=== PATIENT | female | born 1945 | race Caucasian/White ===

== ENCOUNTER 2017-07-06 10:58 | Emergency (ER) | payer OTHER, MEDICARE ==
[~2017-07-06] VITALS: Ht 167.6 cm; Wt 68.0 kg
[2017-07-06 11:50] VITALS: BP 163/81
--- NOTE | 2017-07-06 12:24 | CT SCAN REPORT ---
EXAMINATION: CT HEAD WITHOUT CONTRAST CLINICAL INFORMATION: Status post fall. COMPARISON: None TECHNIQUE: Contiguous axial imaging was performed from the skull base to vertex without intravenous administration of contrast. DLP: 616.67 mGy-cm FINDINGS: There is no evidence of acute intracranial hemorrhage or territorial infarction. No abnormal mass effect or midline shift is seen. Murphy to white matter differentiation is well preserved. No extra-axial fluid collections are identified. The ventricles are normal in size. There is no abnormal attenuation within the brain parenchyma. No depressed skull fracture. There is a small right posterior parietal scalp hematoma. The mastoid air cells and visualized portions of the paranasal sinuses are well aerated. IMPRESSION: No acute intracranial pathology.
--- NOTE | 2017-07-06 13:19 | ED MVC/FALL/TRAUMA COMPLAINT ---
History of Present Illness General Chief Complaint: Fall Stated Complaint: FALL Source: patient, family, old records Exam Limitations: no limitations Vital Signs & Intake/Output Vital Signs & Intake/Output Vital Signs Date Time Temp Pulse Resp B/P B/P Pulse O2 O2 Flow FiO2 Mean Ox Delivery Rate 07/06 1150 97.5 64 18 163/81 98 Room Air Allergies Coded Allergies: No Known Allergies (07/06/17) Triage Note: PT STATES THAT ABOUT 1 HOUR AGO SHE SLIPPED ON ICE AND FELL BACKWARDS AND HIT HER HEAD ON A ROCK, DENIES LOC, BUT STATES THAT SHE FELT DIZZY AFTERWARDS. IS NOT ON THINNERS Triage Nurses Notes Reviewed? yes Onset: Abrupt Duration: hour(s): (2), constant Timing: recent history Severity: moderate Severity Numbers: 5 Injuries/Fall Location: head Method of Injury: fall Loss of Consciousness: no loss of consciousness No Modifying Factors: none Associated Symptoms: denies HPI: 71-year-old female history of hypothyroid presents to the ER for evaluation status post mechanical culture and fall when she slipped on ice outside of her home around 11:00 this afternoon hitting the back or her scalp. Patient states that she did not black out there was no loss of consciousness and she was able to get up and walk back and side. She states initially she felt dizzy however that resolved. She denies any other injury from the fall no neck or back pain arm or leg injury. There is no prodromal chest pain palpitation shortness of breath prior to her injury she is otherwise without any complaints at this time. (Nitin Laurent) Past History Travel History Traveled to [place] past 21 day No Medical History Any Pertinent Medical History? 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 No (Nitin Laurent) Review of Systems Review of Systems Constitutional: Reports: see HPI. Comments Review of systems: See HPI, All other systems negative. Constitutional, no chills no fever HEENT: no sore throat no congestion Cardiovascular: No chest pain Skin: no rashes, no change in skin Respiratory: No dyspnea no cough no sputum GI: No nausea no vomiting, no diarrhea Muscle skeletal: No joint pain, no back pain, no neck pain, Neurologic: , no headache Heme/endocrine: No bruising Immunology: No lymphadenopathy (Nitin Laurent) Physical Exam Physical Exam General Appearance: well developed/nourished, no apparent distress, alert, awake Comments: Well-developed well-nourished person in no acute distress Head/Face: Small hematoma noted to the right occipital scalp no lacerations or abrasions no maxillary/frontal sinus tenderness, no facial swelling Eyes: PERRL, EOMI, no conjunctival injection. No nystagmus Ear:External auditory canal and Tympanic membranes clear, no erythema, no hemotympanum Nose: atraumatic.Normal inspection: No bleeding, no septal hematoma Throat: Moist mucous membranes.Pharynx normal. No pharyngeal erythema/exudate seen. No stridor/drooling or assymetry. No swelling or edema. Neck: Supple, nontender FROM Back: Nontender, Full range of motion Cardiovascular: Regular rate and rhythms no murmur Respiratory: Chest nontender.There were no bony deformities, no asymmetry. No respiratory distress. Patient speaking in full complete sentences. Breath sounds clear to auscultation bilaterally: NO W/R/R Extremity: No edema, full range of motion of extremities, 5 out of 5 strength noted to bilateral upper and lower extremities Neuro: Alert oriented x3, motor sensory normal, cranial nerves II through XII grossly intact. There were no obvious focal neurologic abnormalities. Skin: No appreciable rash on exposed skin, skin is warm and dry. Psych: Mood and affect is normal, memory and judgment is normal. Core Measures ACS in differential dx? No CVA/TIA Diagnosis No Sepsis Present: No Sepsis Focused Exam Completed? No (Nitin Laurent) Progress Differential Diagnosis: C/T/L spine injury, ext injury, ICH, pelvis injury, spinal cord injury Plan of Care: ct ordreed from triage. 1320 I saw the patient upon being brought back to the room and I discussed with her family her CAT scan results. I had an extensive conversation regarding need for close follow up with their primary care physician this week as well as return precautions. I answered all of their questions, they feel comfortable with the plan and follow-up care. Diagnostic Imaging: Viewed by Me: CT Scan. Discussed w/RAD: CT Scan. Radiology Impression: PATIENT: JANAE BECKER PRESENT AGE: 71 PATIENT ACCOUNT NO: [id number] : 44 LOCATION: [facility] ORDERING PHYSICIAN: Frederick Carrillo DO SERVICE DATE: 07/06/171154 EXAM TYPE: CAT - CT HEAD WO IV CONTRAST EXAMINATION: CT HEAD WITHOUT CONTRAST CLINICAL INFORMATION: Status post fall. COMPARISON: None TECHNIQUE: Contiguous axial imaging was performed from the skull base to vertex without intravenous administration of contrast. DLP: 616.67 mGy-cm FINDINGS: There is no evidence of acute intracranial hemorrhage or territorial infarction. No abnormal mass effect or midline shift is seen. Murphy to white matter differentiation is well preserved. No extra-axial fluid collections are identified. The ventricles are normal in size. There is no abnormal attenuation within the brain parenchyma. No depressed skull fracture. There is a small right posterior parietal scalp hematoma. The mastoid air cells and visualized portions of the paranasal sinuses are well aerated. IMPRESSION: No acute intracranial pathology. DICTATED BY: Fili Chen MD DATE/TIME DICTATED:07/06/171215 [facility] [place] DATE/TIME TRANSCRIBED:07/06/171215 CONFIDENTIAL, DO NOT COPY WITHOUT APPROPRIATE AUTHORIZATION. <Electronically signed in Other Vendor System> SIGNED BY: Fili Chen MD 07/06/17 1224 (Nitin Laurent) Departure Departure Time of Disposition: 1330 Disposition: HOME OR SELF CARE Condition: Stable Clinical Impression Primary Impression: Minor head injury without loss of consciousness Referrals: Rajendra BUCKLEY,Aldo Perla (PCP/Family) Additional Instructions: Brain rest, limit tv cellphone computer usage as this may make your symptoms worse. tylenol or motrin for pain. follow up with your pmd, return with any concerns Departure Forms: Customer Survey General Discharge Information (Nitin Laurent) PA/[employer] MANAGEMENT PROFESSOR Co-Sign Statement Statement: ED Attending supervision documentation- x I saw and evaluated the patient. I have also reviewed all the pertinent lab results and diagnostic results. I agree with the findings and the plan of care as documented in the PA's/T[employer]FGR[employer] MANAGEMENT PROFESSOR's documentation. [] I have reviewed the ED Record and agree with the PA's/[employer] MANAGEMENT PROFESSOR's documentation. [] Additions or exceptions (if any) to the PAs/T[employer]FGR[employer] MANAGEMENT PROFESSOR's note and plan are summarized below: [] (Larry BUCKLEY,Diomedes)
== END 2017-07-06 13:37 ==
LOC: ERH 10:58
DX: S09.90XA Unspecified injury of head, initial encounter (principal); W00.0XXA Fall on same level due to ice and snow, initial encounter; Y92.009 Unspecified place in unspecified non-institutional (private) residence as the place of occurrence of the external cause; Y93.9 Activity, unspecified